=== PATIENT | female | born 1975 | race African-American/Black ===

== ENCOUNTER 2018-07-14 13:56 | Inpatient (IN) ==
--- NOTE | 2018-07-14 14:36 | Diag Imaging Result Doc PS360 ---
EXAM: CHEST-1 VIEW HISTORY: cp TECHNIQUE: Portable chest COMPARISON: None. FINDINGS: The lungs are well expanded. The heart is not enlarged. The vessels are not distended. There are no infiltrates. No effusion identified. IMPRESSION: Negative exam. Electronically signed by Sergey Jimenez 07/14/2018 2:33 PM
[2018-07-14 15:02] LABS: BASO# 0.04 X1000 (0.0-0.2); BASO% 0.6 % (0.0-0.8); EOS# 0.17 X1000 (0.0-0.7); EOS% 2.5 % (0.0-10.0); HEMATOCRIT 36.8 % (37.0-47.0); HEMOGLOBIN 12.7 g/dL (12.0-16.0); LYMPH# 2.14 X1000 (1.2-3.4); LYMPH% 31.4 % (20.5-51.1); MCH 30.4 PG (27-31); MCHC 34.5 g/dL (33-37); MONO# 0.47 X1000 (0.11-0.59); MONO% 6.9 % (1.7-9.3); MPV 10.2 FL (7.4-10.4); NEUT# 3.99 X1000 (1.4-6.5); NEUT% 58.6 % (42.2-75.2); PLT 268 X1000 (130-400); RBC 4.18 XMIL (4.2-5.4); RDW 12.3 % (11.5-14.5); WBC 6.81 X1000 (4.8-10.8)
--- NOTE | 2018-07-14 15:02 | EKG Report ---
Test Performed on : 07/14/2018 2:02:12 PM Test Reason : cp Blood Pressure : / mmHG Vent. Rate : 093 BPM Atrial Rate : 093 BPM P-R Int : 128 ms QRS Dur : 072 ms QT Int : 364 ms P-R-T Axes : 048 017 011 degrees QTc Int : 452 ms Normal sinus rhythm. Normal ECG No previous ECGs available Unconfirmed Result
[2018-07-14 15:10] LABS: INR 0.93; PROTIME 13.2 Seconds (11.0-16.0)
[2018-07-14 15:11] LABS: PTT 25.4 Seconds (22.3-41.8)
[2018-07-14 15:13] LABS: D-DIMER < 0.27 ug/mLFEU (0.0-0.52)
[2018-07-14 15:17] LABS: AGAP 10; ALB/GLOB RATIO 1.7; ALBUMIN 4.6 g/dL (3.5-5.0); ALKALINE PHOSPHATASE 75 U/L (32-104); BUN 14 mg/dL (8-22); CALCIUM 9.9 mg/dL (8.8-10.2); CHLORIDE 104 mmol/L (98-107); COSMO 278; CREATININE 0.8 mg/dL (0.5-0.9); ESTIMATED GFR > 60; GLUCOSE 93 mg/dL (70-104); GOT 18 U/L (10-30); GPT 21 U/L (10-36); POTASSIUM 4.2 mmol/L (3.5-5.1); SODIUM 139 mmol/L (136-145); TCO2 25 mmol/L (25-35); TOTAL BILIRUBIN 0.34 mg/dL (0.20-1.00); TOTAL PROTEIN 7.3 g/dL (6.3-8.3)
[2018-07-14] MEDS ORDERED: NITROGLYCERIN SL ONE (16:12)
[2018-07-14] MEDS ORDERED: ASPIRIN PO ONE (16:12)
[2018-07-14 17:14] LABS: URINE SOURCE CLEAN CATCH
[2018-07-14 17:18] LABS: BILIRUBIN URINE NEGATIVE (NEGATIVE); BLOOD URINE NEGATIVE (NEGATIVE); COLOR YELLOW; GLUCOSE URINE NEGATIVE (NEGATIVE); KETONE URINE NEGATIVE (NEGATIVE); LEUKOCYTES URINE NEGATIVE (NEGATIVE); NITRITE URINE NEGATIVE (NEGATIVE); PROTEIN URINE NEGATIVE (NEGATIVE); SP GRAVITY URINE 1.022; TURBIDITY URINE CLEAR (CLEAR); UR EPITHELIAL CELLS <10 /HPF (<10); URINE BACTERIA NEGATIVE /HPF; URINE RBC <10 /HPF (<10); URINE WBC <10 /HPF (<10); UROBILINOGEN URINE 2 mg/dL (NORMAL)
--- NOTE | 2018-07-14 17:36 | PROVIDER DOCUMENTATION ---
This chart was entered by Alejandrina Delgado Scribe, acting as scribe for Serjio Berry MD. HPI-Chest Pain - General Chief Complaint: Chest Pain Stated Complaint: CP-L ARM THROBBING Time Seen by Provider: 07/14/18 14:06 Source: patient Allergies/Adverse Reactions: Patient Allergies Allergy/AdvReac Type Severity Reaction Status Date / Time No Known Allergies Allergy Verified 07/14/18 16:03 Home Medications: Home Medication List Medication Instructions Recorded Confirmed Last Taken Type Estradiol [Estrace] 1 tab PO DAILY 01/08/17 07/14/18 01/08/17 History Albuterol 2.5MG/Ipratrop 0.5MG 3 ml INH TID PRN 07/14/18 07/14/18 Unknown History [Duoneb (A & A)] Albuterol Sulfate [Proair Hfa] 2 puff INH Q6H PRN 07/14/18 07/14/18 Unknown Hi story Buspirone HCl [Buspar] 1 tab PO QHS 07/14/18 07/14/18 Unknown History Folic Acid 1 tab PO DAILY 07/14/18 07/14/18 Unknown History Hydroxychloroquine [Plaquenil] 1 tab PO BID 07/14/18 07/14/18 Unknown History Ibuprofen 1 tab PO TID PRN 07/14/18 07/14/18 Unknown History Metformin [Glucophage] 1 tab PO BID 07/14/18 07/14/18 Unknown History Methotrexate 4 tab PO DIRECTED 07/14/18 07/14/18 Unknown History Prednisone 3 tab PO DAILY 07/14/18 07/14/18 Unknown History - History of Present Illness-CP Nature of Presenting Problem: Patient is a 43 year old female who presents to the ED with chest pain that radiates to left arm and shortness of breath that has been present for 2 weeks. Reports being seen at [facility] 2 weeks ago and was informed all her results were normal. History of sarcoidosis and diabetes. Denies nausea and vomiting. Location: reports: central Chest Pain Radiation: reports: arms (left) Quality of Pain: reports: aching Severity in ED: mild Onset/Duration: other (2 weeks) Timing: still present Context/Activities at Onset: reports: light activity Modifying Factors: improves with: nothing Associated Symptoms: reports: shortness of breath Similar Symptoms Previously?: Yes Recently Seen Here or By Another Healthcare Provider: Yes Review of Systems - Adult - REVIEW OF SYSTEMS - ADULT Constitutional: reports: no symptoms reported. denies: chills, fever, fatique Eyes: reports: no symptoms reported Ears, Nose, Mouth & Throat: reports: no symptoms reported Cardiovascular: reports: see HPI, chest pain. denies: heart murmur, irregular heart rate Respiratory: reports: see HPI, shortness of breath. denies: cough, wheezing Gastrointestinal: reports: no symptoms reported. denies: abdominal pain, diarrhea, nausea, vomiting Genitourinary: reports: no symptoms reported Musculoskeletal: reports: no symptoms reported Integumentary: reports: no symptoms reported Neurological: reports: no symptoms reported Psychiatric: reports: no symptoms reported Endocrine: reports: no symptoms reported Hematologic/Lymphatic: reports: no symptoms reported Allergic/Immunologic: reports: no symptoms reported All Other Systems: Reviewed and Negative Past History - Adult - PAST MEDICAL HISTORY-ADULT Review of Records: reports: Nursing Assessment Review, Medications Reviewed, Social history reviewed & non-contributory. Major Childhood Illnesses: reports: denies history Cardiovascular: reports: denies history Respiratory: reports: other (sarcoidois of the lung) Gastrointestinal: reports: other. denies: GI bleed Obstetrical/Gynecological: reports: other (hysterectomy) Genitourinary: denies: kidney disease Musculoskeletal: reports: chronic pain Neurological: reports: denies history Endocrine/Immune: reports: Diabetes Other Conditions: reports: denies history - PRIOR SURGERIES/PROCEDURES Surgical/Procedure History: reports: reviewed, not pertinent - IMMUNIZATION STATUS Childhood Immunizations: See Nurse Assessment Flu Vaccine: See Nurse Assessment - FAMILY HISTORY Family History: reviewed, not pertinent - SOCIAL HISTORY Smoking: denies Substance Use: alcohol Alcohol Use Frequency: occasionally Physical Exam-General - PHYSICAL EXAM-ADULT Initial Vital Signs Reviewed: Yes - CONSTITUTIONAL General Appearance: alert, no apparent distress. negative: lethargic, slow to respond - RESPIRATORY Respiratory: chest non-tender, lungs clear, normal breath sounds. negative: crackles, stridor - CARDIOVASCULAR Cardiovascular: normal peripheral pulses, regular rate, rhythm. negative: tachycardia, systolic murmur - GASTROINTESTINAL (ABDOMEN) Abdominal Exam: normal bowel sounds, non tender, soft. negative: guarding, rebound - MUSCULOSKELETAL Extremity: non-tender, normal inspection. negative: deformity, erythema - SKIN Integumentary: normal color, normal turgor, warm/dry. negative: cyanosis, ecchymosis, erythema, jaundice - NEUROLOGIC Neurologic: grossly normal. negative: aphasia, facial droop - PSYCHIATRIC Psych/Mental Status: normal mood/affect, oriented x 3. negative: paranoid - HEART Score HEART Score: History: Slightly Suspicious HEART Score: ECG: Normal HEART Score: Age: < or = 45 Years HEART Score: Risk Factors for Atherosclerotic Disease: 1 or 2 Risk Factors HEART Score: Troponin: < or = Normal Limit Total HEART Score:: 1 Progress - PLAN OF CARE/RESULTS Progress/Plan/Lab Results: Vital Signs - 8 hr 07/14/18 14:02 07/14/18 15:56 07/14/18 15:58 Temperature 98.3 F Pulse Rate 96 H 89 83 Respiratory Rate 18 18 13 Blood Pressure 120/80 119/76 O2 Sat by Pulse Oximetry 100 99 98 07/14/18 16:00 07/14/18 16:03 07/14/18 16:10 Temperature Pulse Rate 88 92 H 80 Respiratory Rate 19 16 19 Blood Pressure 118/83 O2 Sat by Pulse Oximetry 98 98 98 07/14/18 16:20 07/14/18 16:30 07/14/18 16:32 Temperature Pulse Rate 87 90 90 Respiratory Rate 16 15 22 Blood Pressure 119/87 O2 Sat by Pulse Oximetry 97 99 97 07/14/18 16:40 07/14/18 16:50 07/14/18 17:00 Temperature Pulse Rate 89 85 86 Respiratory Rate 21 21 21 Blood Pressure O2 Sat by Pulse Oximetry 98 100 100 07/14/18 17:03 07/14/18 17:04 07/14/18 17:07 Temperature Pulse Rate 96 H 90 95 H Respiratory Rate 21 15 14 Blood Pressure 131/91 122/89 O2 Sat by Pulse Oximetry 100 99 99 07/14/18 17:10 07/14/18 17:20 07/14/18 17:30 Temperature Pulse Rate 101 H 88 89 Respiratory Rate 13 13 13 Blood Pressure O2 Sat by Pulse Oximetry 100 99 98 07/14/18 17:32 07/14/18 17:40 07/14/18 17:50 Temperature Pulse Rate 90 107 H 81 Respiratory Rate 12 24 14 Blood Pressure 120/89 O2 Sat by Pulse Oximetry 98 95 99 07/14/18 18:00 07/14/18 18:03 Temperature Pulse Rate 87 86 Respiratory Rate 18 18 Blood Pressure 137/91 O2 Sat by Pulse Oximetry 100 95 Laboratory Results - last 24 hr 07/14/18 07/14/18 07/14/18 14:45 14:45 14:45 WBC 6.81 RBC 4.18 L Hgb 12.7 Hct 36.8 L MCV 88.0 MCH 30.4 MCHC 34.5 RDW Std Deviation 12.3 Plt Count 268 MPV 10.2 Immature Gran % (Auto) 0.0 Neut % (Auto) 58.6 Lymph % (Auto) 31.4 [place] % (Auto) 6.9 Eos % (Auto) 2.5 Baso % (Auto) 0.6 Immature Gran # (Auto) 0.00 Neut # (Auto) 3.99 Lymph # (Auto) 2.14 [place] # (Auto) 0.47 Eos # (Auto) 0.17 Baso # (Auto) 0.04 PT INR PTT (Actin FS) D-Dimer, Quantitative Sodium 139 Potassium 4.2 Chloride 104 Carbon Dioxide 25 Anion Gap 10 BUN 14 Creatinine 0.8 Estimated GFR/1.73 m2 > 60 BUN/Creatinine Ratio 18 Glucose 93 Calculated Osmolality 278 Calcium 9.9 Total Bilirubin 0.34 AST 18 ALT 21 Alkaline Phosphatase 75 Troponin T Myc-N-Vqprrkswvwh Pept < 5 L Total Protein 7.3 Albumin 4.6 Globulin 2.7 Albumin/Globulin Ratio 1.7 Urine Source Urine Color Urine Turbidity Urine pH Ur Specific [place] Urine Protein Ur Glucose (Stick) Ur Ketones (Stick) Urine Blood Urine Nitrite Urine Bilirubin Urobilinogen Dipstick Urine Leukocytes Urine WBC (Auto) Urine RBC (Auto) U Epithel Cells (Auto) Urine Bacteria (Auto) 07/14/18 07/14/18 07/14/18 14:45 14:45 15:55 WBC RBC Hgb Hct MCV MCH MCHC RDW Std Deviation Plt Count MPV Immature Gran % (Auto) Neut % (Auto) Lymph % (Auto) [place] % (Auto) Eos % (Auto) Baso % (Auto) Immature Gran # (Auto) Neut # (Auto) Lymph # (Auto) [place] # (Auto) Eos # (Auto) Baso # (Auto) PT 13.2 INR 0.93 PTT (Actin FS) 25.4 D-Dimer, Quantitative < 0.27 Sodium Potassium Chloride Carbon Dioxide Anion Gap BUN Creatinine Estimated GFR/1.73 m2 BUN/Creatinine Ratio Glucose Calculated Osmolality Calcium Total Bilirubin AST ALT Alkaline Phosphatase Troponin T < 0.010 Oun-B-Ulifvnthcor Pept Total Protein Albumin Globulin Albumin/Globulin Ratio Urine Source CLEAN CATCH Urine Color YELLOW Urine Turbidity CLEAR Urine pH 6.0 Ur Specific [place] 1.022 Urine Protein NEGATIVE Ur Glucose (Stick) NEGATIVE Ur Ketones (Stick) NEGATIVE Urine Blood NEGATIVE Urine Nitrite NEGATIVE Urine Bilirubin NEGATIVE Urobilinogen Dipstick 2 A Urine Leukocytes NEGATIVE Urine WBC (Auto) <10 Urine RBC (Auto) <10 U Epithel Cells (Auto) <10 Urine Bacteria (Auto) NEGATIVE Orders Category Date Time Status cxr [CHEST-1 VIEW] [RAD] Stat Exams 07/14/18 14:08 Completed CBC WITH ELECTRONIC DIFF [HEME] Stat Lab 07/14/18 14:45 Completed COMPREHENSIVE METABOLIC PANEL [CHEM] Stat Lab 07/14/18 14:45 Completed D-DIMER [COAG] Stat Lab 07/14/18 14:45 Completed PRO B-NATRIURETIC PEPTIDE Stat Lab 07/14/18 14:45 Completed PT [PROTIME WITH INR] [COAG] Stat Lab 07/14/18 14:45 Completed PTT [COAG] Stat Lab 07/14/18 14:45 Completed TROPONIN T Stat Lab 07/14/18 14:45 Completed URINALYSIS [URINALYSIS] Stat Lab 07/14/18 15:55 Completed Aspirin Med 07/14/18 16:12 Discontinued 325 mg PO NOW ONE Nitroglycerin Sl [Nitroglycerin] Med 07/14/18 16:12 Discontinued 0.4 mg SL NOW ONE EKG [EKG] Stat Ther 07/14/18 14:06 Draft Transfer/Admit Order [TRANSFER] Routine Transfer 07/14/18 18:01 Ordered Result Diagrams: 07/14/18 14:45 07/14/18 14:45 - EKG 1 Time of EKG reading by physician:: 14:02 EKG Read and Signed by:: Serjio Berry EKG Interpretation (*Must complete 3 of following elements*): Normal Rate: 93 Rhythm: normal sinus rhythm [place]: normal QRS: normal ND Interval: normal ST Wave: normal Comments: normal ECG - XRAY 1 XRAY Study: Chest Impression: See EMR Report ( EXAM: CHEST-1 VIEW HISTORY: cp TECHNIQUE: Portable chest COMPARISON: None. FINDINGS: The lungs are well expanded. The heart is not enlarged. The vessels are not distended. There are no infiltrates. No effusion identified. IMPRESSION: Negative exam. Electronically signed by Sergey Jimenez 07/14/2018 2:33 PM 07/14/18 1433 Interpreting Physician: Sergey Jimenez MD Dictated Date/Time: 07/14/18 1433 cc: Serjio Berry MD; Marcela Gregory MD) - CONSULTS/PCP/HOSPITALIST Notification #1 *Consult/PCP/Hospitalist*: Natalie Manuel Time Discussed: 18:16 Consult Disposition: Admit Departure - Departure Date of Disposition Decision: 07/14/18 Time of Disposition Decision: 18:16 DIAGNOSIS: Chest pain Disposition: ADMITTED INPATIENT 09 Certified Medical Emergency: Emergent Condition: Fair Referrals and Follow-Ups: Marcela Gregory MD [Primary Care Provider] - - Critical Care Note This patient required my direct & personal management of CC.: No Attestation - Physician/ AZALIA Attestation Patient care was provided by Advanced Practice Provider:: No The physician spent face to face time with patient:: Yes Advanced Practice Provider documentation review:: Supervising physician onsite and consulted in the evaluation and care of this patient. The physician did have a face to face encounter with the patient. This chart was documented by the indicated scribe, (Alejandrina Delgado Scribe) and accurately reflects the services I performed and decisions made by me, Serjio Berry MD, as attested by the provider's signature.
[2018-07-14] MEDS ORDERED: TYLENOL PO PRN (18:50)
[2018-07-14] MEDS ORDERED: VENTOLIN HFA INH PRN (18:50)
[2018-07-14] MEDS ORDERED: NITROGLYCERIN SL PRN (18:50)
[2018-07-14] MEDS ORDERED: ZOFRAN IV PRN (18:50)
[2018-07-14] MEDS ORDERED: LOVENOX SUBQ SCH (18:50)
--- NOTE | 2018-07-14 19:02 | HISTORY AND PHYSICAL ---
HISTORY OF PRESENT ILLNESS: This is a 43-year-old who states for 2 weeks she has had pain which is very persistent and feels like it is pulsatile and sharp. Did not feel any pressure, but then later she did say she had some pressure and seems to have numbness in her left arm. She denies any known fever or chills. No cough or sputum production. No pleuritic type pain. PAST MEDICAL HISTORY: Apparently she has been treated for sarcoidosis. She has been treated for urinary tract infections in the past. She has had her gallbladder out. She has had a PICC line placed I think for urinary tract infection and D and C, and she has had a hysterectomy. FAMILY HISTORY: She did not give any account of family history. REVIEW OF MEDICATIONS: Her home medications, she is on BuSpar at bedtime. She is on Plaquenil I believe that must be 100 mg twice a day. She takes ibuprofen as needed. She does have diabetes. She has never been diagnosed with hypertension. Currently on some prednisone as well. I assume that is for the sarcoidosis. REVIEW OF SYSTEMS: HEENT: She does not complain of any visual or hearing changes. Neck: No neck pain or adenopathy reported. Respiratory: No increased work of breathing or dyspnea. Cardiovascular: She does not complain of palpitations, but she does feel like she is having sharp, stabbing pains that correlate with her heartbeat. Gastrointestinal and Genitourinary: No change in bowels. No gross hematuria, dysuria reported. Endocrinologic/Hematologic: No significant history. PHYSICAL EXAMINATION: VITAL SIGNS: Temperature 98.3 degrees, pulse 86, respirations 18, blood pressure 137/91. HEENT: Her pupils are equal. NECK: No distended neck veins. LUNGS: Clear anterolateral. She had some chest wall tenderness, but did not correlate in by her report to what she is experiencing. CARDIOVASCULAR: Regular rhythm and rate without murmur or S3. ABDOMEN: Soft. SKIN: Warm and dry. LABORATORY STUDIES: White count 6810, hematocrit 36, platelet count 268,000. Sodium 139, potassium 4.2, chloride 104, BUN 14, creatinine 0.8, calcium 9.9, AST 18, ALT 21, alkaline phosphatase is 75. Troponin is less than 0.01. ProBNP was less than 5. Albumin 4.6. Pro time 13.2, PTT was 25. Urinalysis unremarkable. Chest x-ray negative exam. Lungs well expanded. EKG normal sinus rhythm. ASSESSMENT AND PLAN: 1. Atypical chest pain. We are going to check an echocardiogram. She does have a history of sarcoidosis and I think we need to make sure there is no pericardial pathology going on. We will check serial cardiac enzymes, troponin, and CK. We will check her T4, TSH, B12 and folate. We will go ahead and get a C-reactive protein and a sedimentation rate just to kind of see if there is anything inflammatory going on, but it does not appear clinically that she has got inflammation and the primary thing is we will rule out coronary ischemia. We will set her up for a Lexiscan or myocardial GXT in the morning. Get Cardiology to go ahead and get involved. 2. History of sarcoidosis. Under treatment. She is on prednisone I am not sure the dosing. She has 3 tablets. I am not sure if that is 15 mg or 30 mg. We will need to find that out. As far as a sarcoidosis, I think she is on the Plaquenil, methotrexate, and prednisone. She appears to have no respiratory compromise. Moving air well. 3. She has been treated for anxiety and she is on BuSpar. cc: Adithya Heredia MD
[2018-07-14 20:05] LABS: CK INDEX 0.8 (0.0-2.5); CK-MB 1.66 ng/mL (0.0-5.0)
[2018-07-14] MEDS: PLAQUENIL PO SCH (20:52)
[2018-07-14] MEDS: HUMALOG SUBQ SCH (20:53)
[2018-07-14] MEDS ORDERED: BUSPAR PO SCH (21:00)
[2018-07-15 03:38] LABS: CK INDEX 0.8 (0.0-2.5); CK-MB 1.44 ng/mL (0.0-5.0)
[2018-07-15] MEDS: HUMALOG SUBQ SCH ×3 (06:33→16:49)
--- NOTE | 2018-07-15 06:34 | Diag Imaging Result Doc PS360 ---
EXAM: CHEST-PORTABLE HISTORY: Chest Pain TECHNIQUE: Chest single view COMPARISON: 07/14/2018 FINDINGS: The lungs are well expanded. The heart is not enlarged. The vessels are not distended. There are no infiltrates. No effusion identified. IMPRESSION: Negative exam. Electronically signed by Sergey Jimenez 07/15/2018 6:32 AM
[2018-07-15] MEDS ORDERED: PRILOSEC PO SCH (07:00)
[2018-07-15 07:20] LABS: BASO# 0.05 X1000 (0.0-0.2); EOS% 4.2 % (0.0-10.0); HEMATOCRIT 38.6 % (37.0-47.0); HEMOGLOBIN 13.3 g/dL (12.0-16.0); LYMPH# 1.95 X1000 (1.2-3.4); LYMPH% 40.5 % (20.5-51.1); MCH 30.6 PG (27-31); MCHC 34.5 g/dL (33-37); MCV 88.7 FL (81-99); MONO# 0.39 X1000 (0.11-0.59); MONO% 8.1 % (1.7-9.3); MPV 10.1 FL (7.4-10.4); NEUT# 2.22 X1000 (1.4-6.5); NEUT% 46.2 % (42.2-75.2); PLT 262 X1000 (130-400); RBC 4.35 XMIL (4.2-5.4); RDW 12.6 % (11.5-14.5); WBC 4.81 X1000 (4.8-10.8)
--- NOTE | 2018-07-15 07:32 | EKG Report ---
Test Performed on : 07/15/2018 06:42:36 AM Test Reason : follow up Blood Pressure : / mmHG Vent. Rate : 091 BPM Atrial Rate : 091 BPM P-R Int : 130 ms QRS Dur : 072 ms QT Int : 380 ms P-R-T Axes : 055 035 028 degrees QTc Int : 467 ms Normal sinus rhythm. Normal ECG When compared with ECG of 14-JUL-2018 14:02, (Unconfirmed) No significant change was found Confirmed by Geovani WHEELER, Ricky Young ([id number]) on 07/15/2018 8:21:32 AM
[2018-07-15 07:55] LABS: AGAP 11; ALB/GLOB RATIO 1.3; ALBUMIN 4.1 g/dL (3.5-5.0); ALKALINE PHOSPHATASE 72 U/L (32-104); BUN 12 mg/dL (8-22); C REACTIVE PROT QUANT 5.38 mg/L (0.00-5.00); CALCIUM 9.3 mg/dL (8.8-10.2); CHLORIDE 103 mmol/L (98-107); CHOLESTEROL 167 mg/dL (0-200); COSMO 277; CREATININE 0.7 mg/dL (0.5-0.9); ESTIMATED GFR > 60; GLUCOSE 134 mg/dL (70-104); GOT 16 U/L (10-30); GPT 22 U/L (10-36); HDL 55 mg/dL (45-65); LDL 85 mg/dL; POTASSIUM 4.5 mmol/L (3.5-5.1); SODIUM 138 mmol/L (136-145); TCO2 24 mmol/L (25-35); TOTAL PROTEIN 7.2 g/dL (6.3-8.3); TRIGLYCERIDES 135 mg/dL (35-135); VLDL 27 mg/dL
[2018-07-15 07:56] VITALS: BP 118/71
[2018-07-15 08:25] LABS: SED RATE 20 mm/hr (0-20)
[2018-07-15 08:48] LABS: HEMOGLOBIN A1C 6.2 % (4.8-6.0)
[2018-07-15] MEDS ORDERED: FOLIC ACID PO SCH (09:00)
[2018-07-15] MEDS ORDERED: ESTRACE PO SCH (09:00)
[2018-07-15] MEDS ORDERED: ASPIRIN PO SCH (09:00)
[2018-07-15] MEDS ORDERED: PREDNISONE PO SCH (09:00)
[2018-07-15 09:12] LABS: FREE T4 0.94 ng/dL (0.93-1.70); TSH 2.17 uIUmL (0.27-4.20)
--- NOTE | 2018-07-15 11:45 | CARDIOLOGY CONSULTATION ---
DATE: 07/15/2018 CHIEF COMPLAINT: Chest pain. HISTORY OF PRESENT ILLNESS: Ms. Urban is a 43-year-old female with a history of sarcoidosis and diabetes who, for the last 2 weeks, has had a fairly constant sharp pain that is throbbing in the left chest with some radiation down the arm. There is occasional shortness of breath but no real diaphoresis associated with these. No exertional component. She has no diagnosed history of coronary artery disease. PAST MEDICAL HISTORY: 1. Significant for sarcoidosis, followed by Dr. Neto hidalgo at [facility]. She is on chronic steroids for this. 2. Diabetes. SOCIAL HISTORY: She does not smoke. No current illicit drug use. FAMILY HISTORY: No history of early coronary artery disease that she is aware of. REVIEW OF SYSTEMS: A 10 system review of systems is negative except for those things mentioned in the HPI. PHYSICAL EXAMINATION: She is afebrile, heart rate is 99, blood pressure 118/71. General: She is in no acute distress. HEENT: Oropharynx is moist. Normal dentition. Eye examination shows pink conjunctivae and white sclerae. Neck: Examination shows no obvious thyromegaly or thyroid tenderness. Cardiovascular: She sounds to be in a regular rate and rhythm. She has no murmurs. She has no S3. She has no lower extremity edema. Her chest examination is clear bilaterally. She has no increased work of breathing. Abdomen: Soft, nontender, nondistended. She has no obvious organomegaly. Skin Examination: Warm and dry throughout, without any rashes. Neurological: She is moving all extremities well. She has no lateralizing deficits. Psychiatric: She is alert, oriented, and pleasant. She has a normal mood and affect. PERTINENT DATA: She has a history of myocardial perfusion imaging performed around 1 year ago which showed a normal study. In addition, she had a cardiac MRI showing no evidence of infiltration or sarcoid involvement of her heart. Her chest x-ray this visit was unremarkable. Her EKG on presentation showed sinus rhythm, no acute ischemic changes. Subsequent EKG occurring this morning at 6:42 showing sinus rhythm. No acute ischemic changes. All those EKGs were reviewed by me. White count 4.8, hematocrit 38, platelet count is 262,000. Sodium 138, potassium is 4.5, BUN 12, creatinine 0.7. Cardiac enzymes are negative. TSH normal. ASSESSMENT: Ms. Urban is a 43-year-old female who is diabetic, who presented with atypical chest pain. PLAN: Hospitalist service has already initiated an echocardiogram and a stress test. We will proceed with that. If this is unremarkable, then she may be discharged home from a cardiovascular standpoint. We will follow up on the results. Please contact us if we can be of further assistance. cc: Gallo Iniguez MD
[2018-07-15] MEDS: PLAQUENIL PO SCH (14:57)
--- NOTE | 2018-07-15 15:44 | ECHO REPORT ---
ORDER DATE: 07/15/2018 INTERPRETING PHYSICIAN: Dr. Papa Asencio ECHOCARDIOGRAPHIC MEASUREMENTS: 1. Interventricular septum: 1.0 cm. 2. Posterior wall: 1.2 cm. 3. Diastolic diameter: 3.8 cm. 4. Left atrium: 2.9 cm. 5. Aortic root: 3.0 cm. SUMMARY OF THE 2-DIMENSIONAL IMAGIN. Aortic valve leaflets are trileaflet. 2. Pulmonic valve was normal. 3. Normal left ventricular cavity size. 4. Estimated ejection fraction of 60%. 5. There is mild mitral regurgitation. 6. Peak velocity across the aortic valve less than 2 m/sec. There is no aortic stenosis or regurgitation. 7. Mild tricuspid regurgitation. Peak velocity across the tricuspid valve less than 2 m/sec. CONCLUSIONS: 1. Normal left ventricular cavity size. 2. Estimated ejection fraction of 60%. 3. There is mild mitral regurgitation. 4. There is no aortic stenosis or regurgitation. 5. There is no pericardial effusion or obvious intracardiac mass or thrombus. cc: Papa Asencio MD
--- NOTE | 2018-07-15 15:55 | Diag Imaging Result Document ---
PROCEDURE NAME: MYOCARDIAL PERF SCAN, STR/REST - 07/15/2018 PROCEDURE: Exercise Cardiolite Stress Test. SUMMARY: 1. Patient exercised on Bashir protocol for 6 minutes to a peak heart rate of 173. 2. The patient had chest discomfort. 3. Stress electrocardiogram was negative for ischemia. 4. Normal blood pressure response to exercise. 5. There were no dysrhythmias noted. 6. Baseline nonspecific ST-T changes were noted with T-wave inversion in the inferior leads. 7. Cardiolite was injected. 8. Gated SPECT images were obtained in standard views. Images reveal significant chest wall attenuation. 9. There is no evidence of ischemia. 10. There is a small-sized low-grade fixed defect in the left ventricular apex suggestive of attenuation defect, low probability of scar. 11. Next, 13.7 mCi of Cardiolite was injected for the rest phase. 40.4 mCi of Cardiolite was injected for the stress phase. 12. Normal left ventricular cavity size. 13. Left ventricular ejection fraction 68%. CONCLUSIONS: 1. Conclusions patient had mild chest discomfort. 2. Negative exercise stress electrocardiogram. 3. There were no dysrhythmias noted. 4. Myocardial perfusion images revealed no evidence of ischemia. 5. There is small-sized low-grade fixed defect in the left ventricular apex suggestive of attenuation defect. 6. Left ventricular ejection fraction 68%. cc: Papa Asencio MD
--- NOTE | 2018-07-15 16:48 | DISCHARGE SUMMARY ---
ADMISSION DATE: 07/14/2018 DISCHARGE DATE: 07/15/2018 FAMILY PHYSICIAN: Marcela Gregory MD This is a 43-year-old. For 2 weeks, she has had pain, very persistent, feels like it is pulsatile and sharp pressure over on the left side of her chest, but then later she felt like she might have had pressure at times and felt like she had numbness in her left arm. Denied any true jaw or shoulder pain. No fever or chills. No pleuritic type discomfort. No cough or sputum production. Cardiac enzymes were negative. EKG was unremarkable. PAST MEDICAL HISTORY: She has been treated for sarcoidosis, treated for urinary tract infection in the past, had her gallbladder out in the past. She has had a PICC line placed for a urinary tract infection and has had some D Cs and has had a hysterectomy. We did a myocardial perfusion scan, a negative exercise stress test. There were no dysrhythmias. Myocardial perfusion images revealed no evidence of ischemia. There was a small-sized low-grade fixed defect in the left ventricle apex, suggestive of attenuation, and her ejection fraction was 68%. She had no further chest pain, and she wanted to go home. We will discharge her home and continue her current medications. She was taking DuoNeb as needed and then ProAir as needed inhaler, BuSpar 1 at bedtime, Estrace 1 tablet a day, folic acid 1 mg a day, Plaquenil I believe it was 100 mg b.i.d., ibuprofen 1 tablet t.i.d. p.r.n., Glucophage 1 tablet b.i.d., methotrexate I think on a weekly basis, and she is on prednisone 3 tablets a day. We will continue all of that. Follow up with her primary care. cc: Adithya Heredia MD MTDD
[2018-07-18] MEDS ORDERED: METHOTREXATE PO SCH (09:00)
== END 2018-07-15 17:23 | disposition home or self-care (01) | DRG 313 ==
LOC: ED 13:56 → 3N 18:16
PROVIDERS: ATTEND Emergency Medicine
CPT/HCPCS: 71010; 71045; 78452; 80053; 80061; 81001; 82550; 82553; 82607; 82746; 82948; 83036; 83735; 83880; 84439; 84443; 84484; 85025; 85379; 85610; 85651; 85730; 86140; 93005; 93010; 93017; 93306; 99285; A9270; A9500; J1650; J1815; J7506; J7512; XXXXX